=== PATIENT | female | born 1940 | race African-American/Black ===

== ENCOUNTER 2017-12-19 10:34 | Emergency (ER) | payer OTHER ==
[~2017-12-19] VITALS: Ht 157.5 cm; Wt 45.4 kg
[2017-12-19] MEDS ORDERED: TRAMADOL HCL50 MG PO (10:41)
[2017-12-19] MEDS ORDERED: COUMADIN5 MG PO (10:43)
[2017-12-19] MEDS ORDERED: PEPCID20 MG PO (10:44)
[2017-12-19] MEDS ORDERED: AMLODIPINE BESYL5 MG PO (10:44)
[2017-12-19] MEDS ORDERED: PRE PROTEIN 2030 ML (10:45)
== END 2017-12-19 16:48 | disposition home or self-care (01) ==
LOC: ER 10:34
DX: H92.22 Otorrhagia, left ear (principal); H60.8X3 Other otitis externa, bilateral; H61.23 Impacted cerumen, bilateral; G30.9 Alzheimer's disease, unspecified; G20 Parkinson's disease